=== PATIENT | male | born 1950 | race Caucasian/White ===

== ENCOUNTER 2022-05-28 13:56 | Emergency (ER) | payer MEDICARE, SELFPAY ==
[2022-05-28 14:48] VITALS: BP 162/99; PULSE 70; RESP 14; TEMP 36.8; O2SAT 97; BMI 25.1
[2022-05-28 14:54] VITALS: O2SAT 97
--- NOTE | 2022-05-28 14:55 | CRLHL7_ITS ---
For Patients: As a result of the Century Cures Act, medical imaging exams and procedure reports are released immediately into your electronic medical record. You may view this report before your referring provider. If you have questions, please contact your health care provider. Indication: Shortness of breath Technique: One view AP portable sitting chest x-ray. Comparison: None available Findings: Small calcified granuloma in the left lateral lung base. The lungs are otherwise clear. No pleural fluid or pneumothorax. Heart normal. Halle unremarkable. Impression: 1. Calcified granuloma. 2. Portable chest x-ray otherwise negative. Dictated by Romaine Randall MD @ 05/28/2022 3:56:37 PM (Electronically Signed)
--- NOTE | 2022-05-28 15:49 | ED_ITS ---
HPI - General Adult General Chief complaint: Weakness Stated complaint: Covid+, weak, dizzy Time Seen by Provider: 05/28/22 14:45 Source: patient Mode of arrival: ambulatory Limitations: no limitations History of Present Illness HPI narrative: 72-year-old male who was seen in urgent care earlier for sore throat and weakness. They were concerned he was having a stroke so they sent her to the ER for further evaluation. Patient states he woke up this morning with a sore throat. He was feeling weak and more tired than usual. He states that he had COVID-19 in January and he felt very similar to that. He denies any fevers, nausea, vomiting. He denies having chills. He states that his voice is hoarse. He states that he was not having any focal neurologic deficits just generalized weakness. He also states that he felt dizzy this morning. He calls it vertigo, however when asked him if the room is moving or spinning around he tells me that it is not and that he just feels lightheaded. He denies any chest pain or shortness of breath. No abdominal discomfort. No diarrhea. No urinary symptoms. No new rashes. He states that he was tested for COVID-19 in the urgent care and it did come back positive. Patient does have a history of coronary artery disease status post stenting. Related Data Home Medications Medication Instructions Recorded Confirmed bupropion HCl 150 mg 24 hr tablet, mg PO 05/28/22 extended release finasteride 5 mg tablet mg 05/28/22 fluoxetine 40 mg capsule mg 05/28/22 lisinopril 10 tab 05/28/22 mg-hydrochlorothiazide 12.5 mg tablet metoprolol tartrate 25 mg tablet mg 05/28/22 nitroglycerin 0.4 mg sublingual mg 05/28/22 tablet pantoprazole 40 mg tablet,delayed mg PO 05/28/22 release rosuvastatin 40 mg tablet mg 05/28/22 Previous Rx's Medication Instructions Recorded nirmatrelvir 300 mg (150 mg See Rx Instructions PO .COMPLEX 05/28/22 x2)-ritonavir 100 mg tablet,dose #30 ea pack(EUA) (Paxlovid) Allergies Allergy/AdvReac Type Severity Reaction Status Date / Time No Known Drug Allergies Allergy Verified 05/28/22 14:48 Review of Systems Status of ROS: Reports: 10 or more systems reviewed and unremarkable except as noted in History and below Exam Narrative: Exam Narrative: Well-nourished well-developed patient in no acute distress. Alert and oriented. Answers questions appropriately. Mood and affect are appropriate. Thoughts are goal oriented and rational. No tangential or magical thinking noted. Patient speaks in full sentences without needing to catch their breath. Voice is a little scratchy. Speech is not slurred or pressured. HEENT: Normocephalic atraumatic. Pupils are equally round reactive to light. Extraocular muscles are intact. Conjunctivae are moist without any icterus noted. Dry mucous membranes. Posterior pharynx is normal. Neck is soft without any lymphadenopathy or thyromegaly. No masses are appreciated. Cardiovascular: Heart is regular rate and rhythm S1 and S2 are present without any murmurs. Lungs: Clear to auscultation bilaterally no wheezes rhonchi or rales are appreciated. Patient takes deep breaths without any discomfort. Abdomen: Soft and nontender nondistended with normal bowel sounds. No guarding or rebound. No masses or organomegaly appreciated. Extremities: Bilateral lower extremities are without edema. Normal DP and PT pulses. Skin: Well perfused without any obvious rashes. Strength is 5/5 of the upper and lower extremities. 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 Reflexes are 2+ and symmetric at the knees. Cranial nerves 3-12 are normal. [id number] is normal. Ivpf-sk-[id number] is normal. There is no nystagmus either horizontally or vertically. Gait is normal. Const: Vital Signs, click to edit/add: Vital Signs - 24 hr 05/28/22 14:48 05/28/22 14:54 05/28/22 16:29 Temperature 98.3 F Pulse Rate [Femora l] 70 69 Respiratory Rate 14 14 Blood Pressure [Le ft Upper Arm] 162/99 H 154/89 H Pulse Oximetry 97 97 97 Oxygen Delivery Me thod Room Air Room Air Course Course Hospital Course: I did reassure the patient that he is not having a stroke. IV was established and patient received a L of normal saline. Chest x-ray, read by me, does not show any acute infiltrates. Lab work was unremarkable. EKG, read by me, shows normal sinus rhythm. Vital Signs Vital signs: Initial Vital Signs Temperature 98.3 F 05/28/22 14:48 Temperature Source Temporal Artery Scan 05/28/22 14:48 Pulse Rate 70 05/28/22 14:48 Respiratory Rate 14 05/28/22 14:48 Blood Pressure 162/99 H 05/28/22 14:48 Blood Pressure Mean 120 05/28/22 14:48 Pulse Oximetry 97 05/28/22 14:48 Oxygen Delivery Method 05/28/22 14:48 Vital Signs Temperature 98.3 F 05/28/22 14:48 Pulse Rate 70 05/28/22 14:48 Respiratory Rate 14 05/28/22 14:48 Blood Pressure 162/99 H 05/28/22 14:48 Pulse Oximetry 97 05/28/22 14:48 Oxygen Delivery Method 05/28/22 14:48 Temperature 98.3 F 05/28/22 14:48 Pulse Rate 69 05/28/22 16:29 Respiratory Rate 14 05/28/22 16:29 Blood Pressure 154/89 H 05/28/22 16:29 Pulse Oximetry 97 05/28/22 16:29 Oxygen Delivery Method 05/28/22 16:29 Medical Decision Making MDM Narrative Medical decision making narrative: 72-year-old male with COVID-19. Will go ahead and treat the patient with packed COVID. We discussed other symptomatic treatment, quarantine, reasons for follow-up. Patient and were agreeable with everything we discussed had no other questions. Lab Data Lab results reviewed: Yes I reviewed the patient's lab results Labs: Lab Results 05/28/22 05/28/22 05/28/22 Range/Units 15:32 15:32 15:32 WBC 5.47 (4.50-11.00) K/uL RBC 4.52 (4.30-5.90) m/uL Hgb 15.0 (13.5-17.5) gm/dL Hct 44.1 (37.0-53.0) % MCV 98 (80-100) fL MCH 33 (26-34) pg MCHC 34 (32-36) gm/dL RDW Coeff of Aniya 12.0 (11.5-15.5) % Plt Count 127 L (140-440) K/uL Neut % (Auto) 83.8 H (42.0-72.0) % Lymph % (Auto) 6.9 L (20-44) % [place] % (Auto) 8.0 (0.0-11.0) % Eos % (Auto) 0.7 (0.0-7.0) % Baso % (Auto) 0.4 (0.0-3.0) % Neut # (Auto) 4.60 (1.7-7.0) K/uL Lymph # (Auto) 0.40 L (0.90-2.90) K/uL [place] # (Auto) 0.40 (0.00-0.90) K/UL Eos # (Auto) 0.04 (0.00-0.50) K/uL Baso # (Auto) 0.02 (0.00-0.30) K/uL Sodium 137 (135-149) mmol/L Potassium 3.9 (3.6-5.1) mmol/L Chloride 106 (96-114) mmol/L Carbon Dioxide 25 (20-32) mmol/L BUN 12 (7-30) mg/dL Creatinine 0.9 (0.5-1.5) mg/dL Estimated Creat Clear 71.13 Estimated GFR 90 ml/min Glucose 110 (60-115) mg/dL Calcium 9.2 (8.4-10.6) mg/dL Total Bilirubin 1.1 (0.1-1.5) mg/dL Direct Bilirubin 0.2 (0.0-0.5) mg/dL AST 33 (12-35) U/L ALT 34 (4-50) U/L Alkaline Phosphatase 86 (40-150) U/L Total Protein 7.3 (6.0-8.3) g/dL Albumin 4.4 (3.3-5.0) g/dL POC Troponin I 0.00 L (0.01-0.04) ng/ml Imaging Data Chest x-ray: Attestation: I have reviewed the pertinent imaging results. Radiologist's impression: One view AP portable sitting chest x-ray. Comparison: None available Findings: Small calcified granuloma in the left lateral lung base. The lungs are otherwise clear. No pleural fluid or pneumothorax. Heart normal. Halle unremarkable. Impression: 1. Calcified granuloma. 2. Portable chest x-ray otherwise negative. ECG Data Attestation: I personally reviewed and interpreted this ECG as follows: (Normal sinus rhythm, pulse 72) Discharge Plan Discharge Clinical Impression: COVID-19 Patient Disposition: Home, Self-Care Condition: Stable Additional Instructions: Take medication as prescribed. Okay to use Tylenol as needed for fever or aches. Follow-up with your primary care provider in 10 to 14 days for checkup. Return to the ER if you feel like you are symptoms are getting worse instead of better. Prescriptions: New Paxlovid (EUA) 300 mg (150 mg x 2)-100 mg tablets,dose pack See Rx Instructions .ROUTE .COMPLEX Qty: 30 0RF Rx Instructions: take TWO 150 mg tablets of nirmatrelvir with ONE 100 mg tablet of ritonavir twice daily for 5 days No Action fluoxetine 40 mg capsule Label Comments: TAKE 1 CAPSULE BY MOUTH EVERY DAY pantoprazole 40 mg tablet,delayed release (DR/EC) PO Label Comments: TAKE 1 TABLET BY MOUTH EVERY DAY nitroglycerin 0.4 mg tablet, sublingual Label Comments: PLEASE SEE ATTACHED FOR DETAILED DIRECTIONS lisinopril-hydrochlorothiazide 10-12.5 mg tablet Label Comments: TAKE 1 TABLET BY MOUTH EVERY DAY finasteride 5 mg tablet Label Comments: TAKE 1 TABLET BY MOUTH EVERY DAY rosuvastatin 40 mg tablet Label Comments: TAKE 1 TABLET (40 MG) BY MOUTH ONCE DAILY. NEEDS [facility] APPT FOR FURTHER REFILLS. CALL TO SCHEDULE JANICE bupropion HCl 150 mg tablet extended release 24 hr PO Label Comments: TAKE 1 TABLET BY MOUTH EVERY DAY metoprolol tartrate 25 mg tablet Follow Up/Referrals: Provider,Not a Local [Primary Care Provider] - Stand Alone Forms: [employer] Info Instructions
[2022-05-28 15:50] LABS: Basophils Absolute Auto 0.02 K/uL (0.00-0.30); Basophils Percent Auto 0.4 % (0.0-3.0); Eosinophils Absolute Auto 0.04 K/uL (0.00-0.50); Eosinophils Percent Auto 0.7 % (0.0-7.0); Hematocrit 44.1 % (37.0-53.0); Immature Granulocytes Abs Auto 0.01 K/uL (0.00-0.30); Immature Granulocytes Pct Auto 0.2 %; Lymphocytes Percent Auto 6.9 % (20-44); Mean Corpuscular HGB Conc 34 gm/dL (32-36); Mean Corpuscular Hemoglobin 33 pg (26-34); Mean Corpuscular Volume 98 fL (80-100); Neutrophils Percent Auto 83.8 % (42.0-72.0); Platelet Count* 127 K/uL (140-440); Red Blood Count 4.52 m/uL (4.30-5.90); White Blood Count* 5.47 K/uL (4.50-11.00)
[2022-05-28 16:04] LABS: Slide Review Reflex No
[2022-05-28 16:12] LABS: Albumin* 4.4 g/dL (3.3-5.0); Chloride* 106 mmol/L (96-114)
[2022-05-28 16:13] LABS: Potassium* 3.9 mmol/L (3.6-5.1); Sodium* 137 mmol/L (135-149)
[2022-05-28 16:15] LABS: Aspartate Amino Transferase* 33 U/L (12-35); Bilirubin Direct* 0.2 mg/dL (0.0-0.5); Bilirubin Total* 1.1 mg/dL (0.1-1.5); Blood Urea Nitrogen* 12 mg/dL (7-30); Carbon Dioxide* 25 mmol/L (20-32); Creatinine* 0.9 mg/dL (0.5-1.5); Est. Creatinine Clearance* 71.13; Estimated Glomerular Filt Rate 90 ml/min; Total Protein* 7.3 g/dL (6.0-8.3)
[2022-05-28 16:16] LABS: Alanine Aminotransferase* 34 U/L (4-50); Alkaline Phosphatase* 86 U/L (40-150); Calcium* 9.2 mg/dL (8.4-10.6); Glucose* 110 mg/dL (60-115)
[2022-05-28 16:29] VITALS: BP 154/89; PULSE 69; RESP 14; O2SAT 97
== END 2022-05-28 17:11 | disposition home or self-care (01) ==
PROVIDERS: Emergency Provider Family Medicine
DX: U07.1 COVID-19 (principal)
CPT/HCPCS: 36415; 71045; 80048; 80076; 84484; 85025; 93005; 94761; 99284; 99285